=== PATIENT | female | born 1990 | race Caucasian/White ===

== ENCOUNTER 2019-08-20 17:49 | Emergency (ER) | payer OTHER ==
[2019-08-20 18:14] VITALS: BP 104/70
--- NOTE | 2019-08-20 18:52 | ED Physician Documentation ---
History of Present Illness - Stated complaint Stated Complaint: ANDREA/FEVER/PHLEGM COUGH - Chief complaint Chief Complaint: Fever - History obtained from History obtained from: Patient - History of Present Illness Timing: Other (sTARTED 6 DAYS AGO WITH FEVER, BODY ACHES, "EVERYTHING HURT." POOR APPETITE. STARTED TO FEEL BETTER ABOUT 3 DAYS AGO. NOW WITH INCREASED GREEN COUGH.) Review of Systems Constitutional: reports: Fever, Chills, Myalgias, Fatigue Nose: reports: Rhinorrhea / runny nose Throat: denies: Sore throat Respiratory: reports: Cough. denies: Dyspnea GI: denies: Vomiting, Diarrhea PD PAST MEDICAL HISTORY - Past Medical History Past Medical History: No - Present Medications Home Medications: Ambulatory Orders Medication Instructions Recorded Confirmed Doxycycline Hyclate 100 mg PO BID #20 capsule 08/20/19 FLUoxetine [PROzac] 40 mg PO DAILY 08/20/19 08/20/19 guaiFENesin/CODEINE [Robitussin AC] 5 - 10 ml PO Q6H PRN #120 ml 08/20/19 - Allergies Allergies/Adverse Reactions: Allergies Allergy/AdvReac Type Severity Reaction Status Date / Time No Known Drug Allergies Allergy Verified 08/20/19 18:13 - Social History Does the pt smoke?: No - Family History Family history: reports: Non contributory PD ED PE NORMAL - Vitals Vital signs reviewed: Yes - General General: Alert and oriented X 3, No acute distress - HEENT HEENT: PERRL, EOMI, Pharynx benign - Neck Neck: Supple, no meningeal sign, No bony TTP - Cardiac Cardiac: RRR, No murmur - Respiratory Respiratory: No respiratory distress, Clear bilaterally - Abdomen Abdomen: Non tender - Derm Derm: No rash - Neuro Neuro: Alert and oriented X 3, Normal speech Results - Vitals Vitals: Vital Signs - 24 hr 08/20/19 18:13 Temperature 36.6 C Heart Rate 70 Respiratory 14 Rate Blood Pressure 104/70 O2 Saturation 98 Oxygen O2 Source Room air PD MEDICAL DECISION MAKING - ED course ED course: Given the double sickening and worsening cough, concern for bacterial bronchitis is present and is treated with doxycycline. Initial illness was likely influenza but no point in testing or treating given the time course. Departure - Departure Disposition: Home, Self Care Clinical Impression: Influenza, Bronchitis Condition: Good Record reviewed to determine appropriate education?: Yes Instructions: ED Upper Resp Infec Abx Tx Prescriptions: Doxycycline Hyclate 100 mg PO BID #20 capsule guaiFENesin/CODEINE [Robitussin AC] 5 - 10 ml PO Q6H PRN #120 ml PRN Reason: Cough Comments: RETURN ANYTIME IF WORSE OR FOLLOWUP IN 3-4 DAYS IF NOT BETTER. Forms: Activity restrictions Discharge Date/Time: 08/20/19 19:09
[2019-08-20] MEDS ORDERED: DOXYCYCLINE 100 MG TABLET PO STA (18:53)
== END 2019-08-20 19:09 | disposition home or self-care (01) ==
LOC: ED 17:49
DX: J11.1 Influenza due to unidentified influenza virus with other respiratory manifestations (principal); J40 Bronchitis, not specified as acute or chronic
CPT/HCPCS: 99282; 99283; A9270